=== PATIENT | female | born 1940 ===

== ENCOUNTER 2018-01-14 14:00 | Inpatient (IN) | payer OTHER ==
[~2018-01-14] VITALS: Ht 154.9 cm; Wt 81.6 kg
[2018-01-15] MEDS ORDERED: METOPROLOL SUCC25 MG PO (09:29)
[2018-01-15] MEDS ORDERED: COZAAR100 MG PO (09:29)
[2018-01-15] MEDS ORDERED: NORVASC5 MG PO (09:29)
[2018-01-15] MEDS ORDERED: LEVO-T75 MCG PO (09:30)
[2018-01-15] MEDS ORDERED: GLIPIZIDE5 MG PO (09:30)
[2018-01-15] MEDS ORDERED: METFORMIN HCL500 MG PO (09:30)
[2018-01-15] MEDS ORDERED: LIPITOR20 MG PO (09:30)
[2018-01-18] MEDS ORDERED: COLACE100 MG PO (09:25)
[2018-01-18] MEDS ORDERED: ULTRACET PO (09:25)
== END 2018-01-18 10:04 | DRG 735 ==
LOC: OB/GYN 01-17 04:57 → O/R 01-17 04:57 → SURG 01-17 07:00 → OB/GYN 01-17 13:46 → SURG 01-17 14:00 → OB/GYN 01-18 10:04
PROVIDERS: Obstetrics & Gynecology Gynecologic Oncology
PROC: 07TC4ZZ Resection of Pelvis Lymphatic, Percutaneous Endoscopic Approach (ICD-10-PCS; 2018-01-17)
PROC: 0UT24ZZ Resection of Bilateral Ovaries, Percutaneous Endoscopic Approach (ICD-10-PCS; 2018-01-17)
PROC: 0UT74ZZ Resection of Bilateral Fallopian Tubes, Percutaneous Endoscopic Approach (ICD-10-PCS; 2018-01-17)
PROC: 0UT94ZZ Resection of Uterus, Percutaneous Endoscopic Approach (ICD-10-PCS; principal; 2018-01-17 07:00)
DX: C54.1 Malignant neoplasm of endometrium (principal); D25.1 Intramural leiomyoma of uterus; D25.2 Subserosal leiomyoma of uterus

== ENCOUNTER 2019-11-28 08:22 | Inpatient (IN) | payer OTHER ==
[~2019-11-28] VITALS: Ht 152.4 cm; Wt 68.0 kg
[~2019-11-28 08:22] MED LIST: COLACE100 MG PO; COZAAR100 MG PO; GLIPIZIDE5 MG PO; LEVO-T75 MCG PO; LIPITOR20 MG PO; METFORMIN HCL500 MG PO; METOPROLOL SUCC25 MG PO; NORVASC5 MG PO; ULTRACET PO
[2019-12-01] MEDS ORDERED: CARdura 4MG TABLET PO (15:49)
[2019-12-01] MEDS ORDERED: HYDRALAZINE HCL25 MG PO (15:49)
[2019-12-01] MEDS ORDERED: ASA-EC81 MG PO (15:49)
[2019-12-01] MEDS ORDERED: AMLODIPINE BESY10 MG PO (15:49)
[2019-12-01] MEDS ORDERED: LOSARTAN POTAS100 MG PO (15:49)
[2019-12-01] MEDS ORDERED: TOPROL XL50 M1 PO (15:49)
[2019-12-01] MEDS ORDERED: LIPITOR40 MG PO (15:49)
== END 2019-12-01 19:06 | disposition home health service (06) | DRG 65 ==
LOC: ER 08:22 → SURG 19:42
PROVIDERS: ADMIT Internal Medicine; ATTEND Internal Medicine
PROC: BW28ZZZ Computerized Tomography (CT Scan) of Head (ICD-10-PCS; principal; 2019-11-28)
PROC: B030ZZZ Magnetic Resonance Imaging (MRI) of Brain (ICD-10-PCS; 2019-11-28)
PROC: B345ZZZ Ultrasonography of Bilateral Common Carotid Arteries (ICD-10-PCS; 2019-11-28)
PROC: 4A12X4Z Monitoring of Cardiac Electrical Activity, External Approach (ICD-10-PCS; 2019-11-28)
PROC: B24BZZZ Ultrasonography of Heart with Aorta (ICD-10-PCS; 2019-11-29)
DX: I63.211 Cerebral infarction due to unspecified occlusion or stenosis of right vertebral artery (principal); N39.0 Urinary tract infection, site not specified; G45.9 Transient cerebral ischemic attack, unspecified; R47.81 Slurred speech; I10 Essential (primary) hypertension; I08.3 Combined rheumatic disorders of mitral, aortic and tricuspid valves; E03.8 Other specified hypothyroidism; D64.9 Anemia, unspecified; R29.701 NIHSS score 1; E11.65 Type 2 diabetes mellitus with hyperglycemia; I69.328 Other speech and language deficits following cerebral infarction; Z79.4 Long term (current) use of insulin; Z03.818 Encounter for observation for suspected exposure to other biological agents ruled out
CPT/HCPCS: 70551

== ENCOUNTER 2019-12-08 06:27 | Inpatient (IN) | payer OTHER ==
[~2019-12-08] VITALS: Ht 152.4 cm; Wt 68.0 kg
[~2019-12-08 06:27] MED LIST changes: +AMLODIPINE BESY10 MG PO; +ASA-EC81 MG PO; +CARdura 4MG TABLET PO; +HYDRALAZINE HCL25 MG PO; +LIPITOR40 MG PO; +LOSARTAN POTAS100 MG PO; +TOPROL XL50 M1 PO
--- NOTE | 2019-12-08 06:48 | NUR ---
PTE ALERTA Y ORIENTADA X 3 ESFERAS RECIBIDA EN [place] DE [place] EN COMPANIA DE FAMILIAR QUIEN REFIER DESDE LAS 5 30AM DOLOR DE PECHO,DOLOR DE KUMAR,FATIGA Y DIFICULTAD AL HABLAR.SE OBSERVA PTE VERBALIZANDO CORRECTAMENTE Y CON BUEN PATRON DE MOVIMIENTO.SE LE RALIZA EKG Y SE MUESTRA A DR RUIZ,SE UBICA PTE EN CPU.PTE EMANUEL DE REED EL Nov DE [facility].
--- NOTE | 2019-12-08 07:44 | NUR ---
SE RECIBE DE TURNO ANTERIOR EN UNIDAD DE Walker JERE #18, FEMINA DE 79 ANOS,LAERTA,ORIENTADA EN BENJY AZAEL ESFERAS,EN COMPANIA DE FAMILIAR. CONECTADA A MONITOR CARDIACO,OXIMETRIA DE PULSO. ASISTIDA RESPIRATORIAMENTE POR CANULA NASAL A 3LTS/MIN. SATURANDO AL 98%. ORIENTADA SOBRE TRATAMIENTO MEDICO POR QUIEN COLECTA MUESTRAS DE LABORATORIOS,ROTULA Y ENVIA PARA ANALISIS. SE NOTIFICA PLACA PECHO PORTABLE A PERSONAL EN TURNO. SE NOTIFICA ABGS A PERSONAL DE TERPAIA RESPIRATORIA.
--- NOTE | 2019-12-08 08:02 | NUR ---
RE EVALUADA POR QUIEN COLOCA ORDEN MEDICA PARA MEDICAMENTO,SE ORIENTA PACIENTE Y FAMILIAR SOBRE TRATAMIENTO MEDICO,REFIEREN COMPRENDER. SE ADMINISTRA MEDICAMENTO PACHECO ORDENADO BAJO MEDIDAS ASEPTICAS.PACIENTE NO PRESENTA REACCION ADVERSA. TERAPIASTA RESPIRATORIO REALIZA ABGS.
--- NOTE | 2019-12-08 13:13 | NUR ---
RE EVALUADA POR EN TURNO QUIEN COLOCA ORDEN MEDICA,SE ORIENTA PACIENTE Y FAMILIAR REFIEREN COMPRENDER. SE ENTREGA CONTRASTE PO GASTROVIEW PARA ESTUDIO CT ABD/PELV. SE COLECTAN MUESTRAS DE LABORATORIOS PARA TYPE AND CROSSMATCH PARA TRASFUNDIR DOS UNIDADES DE PRBC STAT. SE LLEVA MUESTRA A BANCO DE JONA,EL CUAL RECIBE . SE ENTREGA CONSENTIMIENTO PARA TRASFUSION A PACIENTE Y FAMILIAR. SE COLOCA EL MISMO EN RECORD DE PACIENTE.
--- NOTE | 2019-12-08 15:15 | NUR ---
PATIENT IS RECIEVED FROM PREVIOUS SHIFT ALERT AND ORIENTED X3 IN BED WITH RAILINGS UP AND CONNECTED TO TELEMETRY AND OXIMETRY. PATIENT HAS NASAL CANULA AT 3 LITERS AND HAS A GOOD BREATHING PATTERN. PATIENT DENIES BIENG IN PAIN AT THE MOMENT. PATIENT HAS HER RIGHT LEG VISIBLY MORE SWOLLEN THAN HER LEFT. PATIENT HAS VARIOUS BRUISES ON BOTH ARMS WICH ARE RESULTS OF FAILED IV LINE ATTEMPTS. IV LINE IS STARTED ON PATIENT'S LEFT WRIST AND BLOOD SAMPLE IS EXTRACTED IN ORDER TO COMPLETE TROPONIN LABS.
--- NOTE | 2019-12-08 15:49 | NUR ---
PICC LINE TECH COMES TO EVALUATE PATIENT AND DECIDES THAT PICC LINE PROCESS WILL WAIT UNTIL TOMORROW SINCE PATIENT HAS A CT PENDING AND BLOOD TRASNFUSION PENDING. RUG CLIPPER IS NOTIFIED ABOUT PENDING CAT SCAN.
--- NOTE | 2019-12-08 17:17 | NUR ---
3:40PM SE ORIENTA A PTE. Y FAMILIR PRESENTE SOBRE EL PROCEDIMIENTO DE PICC LINE, RIESGOS Y BENEFICIOS. REFIEREN ENTENDER. CONSENTIMIENTO FIRMADO PREVIAMENTE POR EL PTE. EN ACUERDO CON PACIENTE Y FAMILIAR DE REALIZAR PROCEDIMIENTO PARA EL PROXIMO SALOMÓN 12/09/19. AL MOMENTO PTE. EN ESPERA DE ESTUDIO CT. CON AZAEL ACCESOS VENOSOS PATENTES 2 EN BRAZO RT Y 1 MANO LT. SE ELIZABETH SEGUIMIENTO.
[2019-12-12] MEDS ORDERED: AMLODIPINE BESYL5 MG PO (11:53)
[2019-12-12] MEDS ORDERED: ELIQUIS5 MG PO (11:53)
[2019-12-12] MEDS ORDERED: INTEGRA PLUS C1 EACH PO (11:53)
[2019-12-12] MEDS ORDERED: LIPITOR40 MG PO (11:53)
[2019-12-12] MEDS ORDERED: TRAMADOL HCL50 MG PO (11:53)
[2019-12-12] MEDS ORDERED: RESTORIL15 MG PO (11:53)
[2019-12-12] MEDS ORDERED: TOPROL XL50 M1 PO (11:53)
[2019-12-12] MEDS ORDERED: LEVOTHYROXINE200 MCG PO (11:53)
== END 2019-12-12 17:18 | disposition home or self-care (01) | DRG 812 ==
LOC: ER 06:27 → SEC-K 20:09 → SURG 20:09
PROVIDERS: ADMIT Internal Medicine; ATTEND Internal Medicine
PROC: BW21ZZZ Computerized Tomography (CT Scan) of Abdomen and Pelvis (ICD-10-PCS; 2019-12-08)
PROC: B54CZZZ Ultrasonography of Left Lower Extremity Veins (ICD-10-PCS; 2019-12-08)
PROC: 4A033R1 Measurement of Arterial Saturation, Peripheral, Percutaneous Approach (ICD-10-PCS; 2019-12-08)
PROC: 30233N1 Transfusion of Nonautologous Red Blood Cells into Peripheral Vein, Percutaneous Approach (ICD-10-PCS; 2019-12-08)
PROC: 4A12X4Z Monitoring of Cardiac Electrical Activity, External Approach (ICD-10-PCS; 2019-12-09)
PROC: 0DJ08ZZ Inspection of Upper Intestinal Tract, Via Natural or Artificial Opening Endoscopic (ICD-10-PCS; principal; 2019-12-11)
DX: D50.0 Iron deficiency anemia secondary to blood loss (chronic) (principal); K92.1 Melena; E87.1 Hypo-osmolality and hyponatremia; N17.9 Acute kidney failure, unspecified; N13.2 Hydronephrosis with renal and ureteral calculous obstruction; I82.401 Acute embolism and thrombosis of unspecified deep veins of right lower extremity; I25.10 Atherosclerotic heart disease of native coronary artery without angina pectoris; E03.8 Other specified hypothyroidism; I10 Essential (primary) hypertension; E86.0 Dehydration; E78.5 Hyperlipidemia, unspecified; E11.9 Type 2 diabetes mellitus without complications; Z20.828 Contact with and (suspected) exposure to other viral communicable diseases; Z79.4 Long term (current) use of insulin

== ENCOUNTER 2019-12-17 13:19 | Inpatient (IN) | payer OTHER ==
[~2019-12-17] VITALS: Ht 152.4 cm; Wt 81.6 kg
[~2019-12-17 13:19] MED LIST changes: +AMLODIPINE BESYL5 MG PO; +ELIQUIS5 MG PO; +INTEGRA PLUS C1 EACH PO; +LEVOTHYROXINE200 MCG PO; +RESTORIL15 MG PO; +TRAMADOL HCL50 MG PO
--- NOTE | 2019-12-17 13:37 | NUR ---
PACIENTE ALERTA Y ORIENTADA EN LAS AZAEL ESFERAS, LA MISMA LLEGA EN AMBULANCIA REFIERE DIFICULTAD PARA RESPIRAR. SE OBSERVAN RESPIRACIONES ABDOMINALES. FAMILIAR DE PACIENTE INDICA QUE ESTA ESTUVO HOSPITALIZADA LA SEMANA PASADA POR DVT. DE IGUAL FORMA VERBALIZA LE REALIZARON PRUBA DE COVID HACE DOS ALMEDIA LA MISMA NEGATIVA. SE REALIZA EKG SE PRESENTA A . PACIENTE UBICADA EN AREA DE CHEST PAIN CONECTADA A MONITOR CARDIACO Y OXIMETRIA DE PULSO. SE ENTREGA A RN E LINDO. EN ESPERA DE EVALUACION MEDICA. BARANDAS ELEVADAS Y COMPANIA FAMILIAR.
--- NOTE | 2019-12-17 14:37 | NUR ---
SE RECIBE PACIENTE EN AMBULANCIA.SE UBICA EN CAMA #18 UNIDAD DE CHEST PAIN,PACIENTE EN COMPANIA DE FAMILIAR. SE CONECTA A MONITOR CARDIACO,OXIMETRIA DE PULSO CONTINUA. EVALUADA POR MD EN TURNO QUIEN COLOCA ORDENES MEDICAS. SE ORIENTA PACIENTE YFAMILIAR SOBRE ORDEN MEDICA,REFIEREN COMPRENDER. SE COLECTAN MUESTRAS DE LABORATORIOS LA CUALES SE ROTULAN Y ENVIAN PARA ANALISIS. SE NOTIFICA ESTUDIO DE PLACA DE PECHO PORTABLE A PERSONAL EN TURNO. TERAPISTA RESPIRATORIO REALIZA ABGS. SE COLOCA CANULA NASAL 3LTS/MIN. PACIENTE TOLERA PROCEDIMIENTOS. MEDICO INTERINISTA: DR.RIVERA CANALES HEMATOLOGA ONCOLOGA:
--- NOTE | 2019-12-17 15:50 | NUR ---
PACIENTE ALERTA Y ORIENTADA EN CAMA CONECTADA A MONITOR CARDIACO Y OXIMETRIA DE PULSO. PACIENTE EN COMPANIA DE FAMILIAR CON CANULA NASAL A 3L/MIN. PACIENTE CON VENOPUCNION PATENTE ANKIT DE EDEMA Y ERRITEMA EN BRAZO DERECHO. PACIENTE EN ESPERA DE RESULTADOS DE LABORATORIO. SE ZULY SIGNOS VITALES A PACIENTE ESTABLES AL MOMENTO. SE PHI A PACIENTE EN CAMA BAJO OBSERVACION POR CAMBIOS EN ESPINO CONDICION.
--- NOTE | 2019-12-17 20:41 | NUR ---
5:00PM . SANTANA ENVIA CT DE PECHO CON CONTRASTE EL MISMO NO SE PUEDE REALIZA DEBIDO A QUE PACIENTE TIENE BUN Y CREATININA ELEVADA SE NOTIFICA A MEDICO. PACIENTE ALERTA Y ORIENTADA SE OBSERVA PACIENTE CON DIFICULTAD RESPIRATORIA Y RESPIRANDO ABDOMINLA SE NOTIFICA A DR. YANESA EL MISMO ORDENA QUE SE LE REALIZA ABG .SE ORIENTA A PACIENTE SOBRE TRATAMEINTO MEDICO SE LE COLOCA .9 NSS BAJANDO A 60 ML/HR. SE LE NOTIFICAN GASES ARTERIALES A TERAPIA RESPIRATORIA.
--- NOTE | 2019-12-18 00:26 | NUR ---
SE RECIBE PTE FEMENI NA ALERTA Y OIRIENTADA X3,CONECTADA A MONITOR CARDIASCVO BURTON Y OXIMETRIA CONTINUA,CON 2 H/L PATENTES AREAS LIBRES DE EDEMA Y ENROJECIMENTO,SE MANTIENE CON .[id number],TRIDIL@2ML/HR,SE COMIENZA PRIMERA FRACCION DE PRIMERA UNIDAD DE PRBC LA CUAL PTE TOLERA,SE MANTIENE PTE EN VIGILANCIA BURTON POR CAMBIOS.
--- NOTE | 2019-12-18 00:30 | NUR ---
SE RECIBE PTE FEMENINA ALERTA Y ORIENTADA X3,ACOMPABNADA DE FAMILIAR,SE MANTIENE CONECTADA A MONITOR CARDIASCO BURTON Y OXIMETRIA CONTINUA,CON 2 H/L PATENTEX LIBRES DE EDEMA Y ENROJECIMIENTO,SE MANTIENE AL MOMENTO DESCANSO TRANQUILA Y COOPERADORA,SE CREALIZAN S/V,PTE SE MANTIENE EN OBSERVACION POR CAMBIOS.
--- NOTE | 2019-12-18 10:11 | NUR ---
SE RECIBE FEMINA ALERTA Y CONCIENTE ACOMPANADA DE FAMILIAR. CONECTADA A MONITOR CARDIACO CAPTURANDO EMERSON TAQUICARDIA SINOSAL DE 105/MINT. OXIGENO POR CANULA NASAL 2LTS CON TOS SECA, SEMISENTADA.FAMILIAR LE ASISTE EN EL DESAYUNO. PENDIENTE QUE DR.RIVERA CANALES LA EVALUE. SE MANTIEN BAJO OBS.
--- NOTE | 2019-12-18 11:58 | NUR ---
SE REALIZA NICK EN CAMA, TOTAL SE PHI LIMPIA Y CONECTADA.
--- NOTE | 2019-12-18 16:27 | NUR ---
3:00PM REALIZA ENTREGA DE PACIENTE EN UNIDAD DE CHES PAIN. FEMINA DE 79 ANOS,ALERTA,ORIENTADA EN BENJY AZAEL ESFERAS,DESCANSNADO EN CAMA NIVEL MAS BAJO,BARANDAS ELEVADAS,FRENOS,ROGEL DE IDENTIFICACION COLOCADOS POR SEGURIDAD. UBICADA EN CAMA #18. EN COMPANIA DE FAMILIAR. CONECTADA A MONITOR CARDIACO,OXIMETRIA DE PULSO CONTINUA. ASISTIDA RESPIRATORIAMENTE CON CANULA NASAL A 3LTS/MIN. SE MIDEN SV LOS CUALES SON DOCUMENUTADOS. VENOPUNCION PATENTE EN BRAZO DERECHO SE OBSERVA LIMPIA,SECA,ANKIT DE S/S EDEMA. RECIBIENDO 0.9%NSS 1,000 ML @ 60ML/HR. PENDIENTE CONSULATA CON INTERNISTA DR.RIVERA CANALES.
== END 2019-12-28 16:23 | disposition home or self-care (01) | DRG 683 ==
LOC: ER 13:19 → SEC-K 12-18 18:05 → MEDI 12-18 18:05
PROVIDERS: ADMIT Internal Medicine; ATTEND Internal Medicine
PROC: 4A033R1 Measurement of Arterial Saturation, Peripheral, Percutaneous Approach (ICD-10-PCS; 2019-12-17)
PROC: CB221ZZ Tomographic (Tomo) Nuclear Medicine Imaging of Lungs and Bronchi using Technetium 99m (Tc-99m) (ICD-10-PCS; principal; 2019-12-19)
PROC: 3E0F7GC Introduction of Other Therapeutic Substance into Respiratory Tract, Via Natural or Artificial Opening (ICD-10-PCS; 2019-12-19)
PROC: 4A12X4Z Monitoring of Cardiac Electrical Activity, External Approach (ICD-10-PCS; 2019-12-19)
PROC: B246ZZZ Ultrasonography of Right and Left Heart (ICD-10-PCS; 2019-12-21)
DX: N17.9 Acute kidney failure, unspecified (principal); N39.0 Urinary tract infection, site not specified; R78.81 Bacteremia; I82.401 Acute embolism and thrombosis of unspecified deep veins of right lower extremity; J98.11 Atelectasis; E11.65 Type 2 diabetes mellitus with hyperglycemia; E86.0 Dehydration; E03.8 Other specified hypothyroidism; C54.1 Malignant neoplasm of endometrium; D63.0 Anemia in neoplastic disease; D51.3 Other dietary vitamin B12 deficiency anemia; R09.02 Hypoxemia; B96.1 Klebsiella pneumoniae [K. pneumoniae] as the cause of diseases classified elsewhere; Z20.828 Contact with and (suspected) exposure to other viral communicable diseases; I25.10 Atherosclerotic heart disease of native coronary artery without angina pectoris; N13.1 Hydronephrosis with ureteral stricture, not elsewhere classified; R19.00 Intra-abdominal and pelvic swelling, mass and lump, unspecified site; I11.9 Hypertensive heart disease without heart failure

== ENCOUNTER 2020-01-22 14:10 | Inpatient (IN) | payer OTHER ==
[~2020-01-22] VITALS: Ht 160 cm; Wt 81.6 kg
[2020-01-24] MEDS ORDERED: LASIX20 MG PO (17:47)
== END 2020-01-24 17:58 | disposition home or self-care (01) | DRG 812 ==
LOC: ER 14:10 → SEC-K 20:46 → MEDI 20:46
PROVIDERS: ADMIT Internal Medicine; ATTEND Internal Medicine
PROC: 30233N1 Transfusion of Nonautologous Red Blood Cells into Peripheral Vein, Percutaneous Approach (ICD-10-PCS; principal; 2020-01-23)
DX: D50.0 Iron deficiency anemia secondary to blood loss (chronic) (principal); I10 Essential (primary) hypertension; E11.9 Type 2 diabetes mellitus without complications; E03.9 Hypothyroidism, unspecified; R09.02 Hypoxemia; E53.8 Deficiency of other specified B group vitamins; Z20.828 Contact with and (suspected) exposure to other viral communicable diseases; Z85.42 Personal history of malignant neoplasm of other parts of uterus

== ENCOUNTER → 2020-02-10 | Outpatient (CLI) | payer OTHER ==
[~2020-02-10] MED LIST changes: +LASIX20 MG PO
== END | disposition home or self-care (01) ==
LOC: MAMO-SONO 09:36
PROVIDERS: ATTEND Radiology Diagnostic Radiology
DX: R19.09 Other intra-abdominal and pelvic swelling, mass and lump (principal); N28.1 Cyst of kidney, acquired; E78.2 Mixed hyperlipidemia; E13.49 Other specified diabetes mellitus with other diabetic neurological complication